=== PATIENT | male | born 1995 | race Caucasian/White ===

== ENCOUNTER 2021-01-24 14:09 | Emergency (ER) | payer OTHER ==
[2021-01-24] MEDS ORDERED: Sodium Chloride 0.9% 10 ML Syringe FLUSH PRN (14:40)
[2021-01-24] MEDS ORDERED: Sodium Chloride 0.9% 1,000 ML IV STA (14:40)
[2021-01-24] MEDS ORDERED: Ondansetron 4 MG/2 ML SDV IVPUSH ONE (14:40)
[2021-01-24] MEDS ORDERED: Pantoprazole 40 MG Vial IVPUSH ONE (14:41)
[2021-01-24] MEDS ORDERED: Alum Hydrox/Mag Hydrox/Simeth 30 ML, Lidocaine 2% 15 ML PO ONE ×2 (14:42)
--- NOTE | 2021-01-24 16:55 | EDM.PDOC ---
ED HPI GENERAL MEDICAL PROBLEM - General Chief Complaint: Abdominal Pain Stated Complaint: ABD PAIN Time Seen by Provider: 01/24/21 14:22 Source of Information: Reports: Patient History Limitations: Reports: No Limitations - History of Present Illness INITIAL COMMENTS - FREE TEXT/NARRATIVE: The patient presents with abdominal pain and chest pain. This has been going on for a few days. The pain is burning. He is an alcoholic and the other night he drank. He also vomited some blood the next day. He has no fever, chills or cough. He has no other medical problems. He has some diarrhea. There is no blood in his stool and no dark stool. Onset: Gradual Duration: Day(s): Location: Reports: Chest, Abdomen Quality: Reports: Burning Severity: Moderate Improves with: Reports: None Worsens with: Reports: None Associated Symptoms: Reports: Chest Pain, Nausea/Vomiting. Denies: Cough, Fever/Chills, Headaches Abdomen Pain Score (Numeric/FACES): 7 - Related Data Allergies Allergy/AdvReac Type Severity Reaction Status Date / Time No Known Allergies Allergy Verified 01/24/21 14:24 Home Meds: Home Meds . [No Known Home Meds] 01/24/21 [History] Past Medical History - Past Health History Medical/Surgical History: Denies Medical/Surgical History - Infectious Disease History Infectious Disease History: Reports: None Social & Family History - Tobacco Use Tobacco Use Status *Q: Current Every Day Tobacco User Years of Tobacco use: 3 Packs/Tins Daily: 0.4 - Caffeine Use Caffeine Use: Reports: Energy Drinks, Soda - Recreational Drug Use Recreational Drug Type: Reports: Marijuana/Hashish ED ROS GENERAL - Review of Systems Review Of Systems: See Below Constitutional: Reports: No Symptoms HEENT: Reports: No Symptoms Respiratory: Reports: No Symptoms Cardiovascular: Reports: Chest Pain GI/Abdominal: Reports: Abdominal Pain, Hematemesis, Nausea, Vomiting : Reports: No Symptoms Musculoskeletal: Reports: No Symptoms Skin: Reports: No Symptoms Neurological: Reports: No Symptoms ED EXAM, GI/ABD - Physical Exam Exam: See Below Exam Limited By: No Limitations General Appearance: Alert, No Apparent Distress Ears: Normal External Exam Nose: Normal Inspection Head: Atraumatic, Normocephalic Neck: Normal Inspection Respiratory/Chest: No Respiratory Distress, Lungs Clear, Normal Breath Sounds Cardiovascular: Regular Rate, Rhythm, No Edema, No Rub GI/Abdominal Exam: Soft, Non-Tender, No Organomegaly Back Exam: Normal Inspection Extremities: Normal Inspection Course - Vital Signs Last Recorded V/S: Last Vital Signs Temp 98.5 F 01/24/21 14:28 Pulse 74 01/24/21 14:28 Resp 20 01/24/21 14:28 BP 145/81 H 01/24/21 14:28 Pulse Ox 98 01/24/21 14:28 - Orders/Labs/Meds Orders: Active Orders 24 hr Category Date Time Status Peripheral IV Care [RC] . DIRECTED Care 01/24/21 14:41 Active Sodium Chloride 0.9% [Saline Flush] Med 01/24/21 14:40 Active 10 ml FLUSH ASDIRECTED PRN ED Antiemetic Medication Reflex [OM.PC] Stat Oth 01/24/21 14:41 Ordered Peripheral IV Insertion Adult [OM.PC] Stat Oth 01/24/21 14:40 Ordered Medication Orders Sodium Chloride (Sodium Chloride 0.9% 10 Ml Syringe) 10 ml FLUSH ASDIRECTED PRN PRN Reason: Keep Vein Open Last Admin: 01/24/21 15:59 Dose: 10 ml Documented by: KERI Labs: Laboratory Tests 01/24/21 01/24/21 Range/Units 15:52 15:52 WBC 6.13 (4.23-9.07) K/mm3 RBC 4.72 (4.63-6.08) M/mm3 Hgb 14.7 (13.7-17.5) gm/dl Hct 43.2 (40.1-51.0) % MCV 91.5 (79.0-92.2) fl MCH 31.1 (25.7-32.2) pg MCHC 34.0 (32.2-35.5) g/dl RDW Std Deviation 46.2 H (35.1-43.9) fL Plt Count 227 (163-337) K/mm3 MPV 9.9 (9.4-12.3) fl Neut % (Auto) 60.0 (34.0-67.9) % Lymph % (Auto) 26.8 (21.8-53.1) % Banks % (Auto) 11.7 (5.3-12.2) % Eos % (Auto) 0.7 L (0.8-7.0) Baso % (Auto) 0.5 (0.1-1.2) % Neut # (Auto) 3.68 (1.78-5.38) K/mm3 Lymph # (Auto) 1.64 (1.32-3.57) K/mm3 Banks # (Auto) 0.72 (0.30-0.82) K/mm3 Eos # (Auto) 0.04 (0.04-0.54) K/mm3 Baso # (Auto) 0.03 (0.01-0.08) K/mm3 Sodium 138 (136-145) mEq/L Potassium 3.8 (3.5-5.1) mEq/L Chloride 101 (98-107) mEq/L Carbon Dioxide 28 (21-32) mEq/L Anion Gap 12.8 (5-15) BUN 18 (7-18) mg/dL Creatinine 1.0 (0.7-1.3) mg/dL Est Cr Clr Drug Dosing 109.12 mL/min Estimated GFR (MDRD) > 60 (>60) mL/min BUN/Creatinine Ratio 18.0 (14-18) Glucose 97 (70-99) mg/dL Calcium 9.2 (8.5-10.1) mg/dL Total Bilirubin 0.6 (0.2-1.0) mg/dL AST 31 (15-37) U/L ALT 26 (16-63) U/L Alkaline Phosphatase 82 (46-116) U/L Total Protein 7.3 (6.4-8.2) g/dl Albumin 4.2 (3.4-5.0) g/dl Globulin 3.1 gm/dL Albumin/Globulin Ratio 1.4 (1-2) Lipase 88 (73-393) U/L Meds: Medications Generic Name Dose Route Start Last Admin Trade Name Freq PRN Reason Stop Dose Admin Sodium Chloride 10 ml 01/24/21 14:40 01/24/21 15:59 Sodium Chloride 0.9% 10 Ml Syringe FLUSH 10 ml ASDIRECTED PRN Administration Keep Vein Open Discontinued Medications Generic Name Dose Route Start Last Admin Trade Name Freq PRN Reason Stop Dose Admin Al Hydroxide/Mg Hydroxide 30 0 ml 01/24/21 14:42 01/24/21 16:00 ml/ Lidocaine HCl 15 ml PO 01/24/21 14:43 45 ml ONETIME ONE Administration Sodium Chloride 1,000 mls @ 1,000 mls/hr 01/24/21 14:40 01/24/21 16:00 Normal Saline IV 01/24/21 15:39 1,000 mls/hr .BOLUS STA Administration Ondansetron HCl 4 mg 01/24/21 14:40 01/24/21 15:59 Ondansetron 4 Mg/2 Ml Sdv IVPUSH 01/24/21 14:41 4 mg ONETIME ONE Administration Pantoprazole Sodium 40 mg 01/24/21 14:41 01/24/21 16:01 Pantoprazole 40 Mg Vial IVPUSH 01/24/21 14:42 40 mg ONETIME ONE Administration - Re-Assessments/Exams Free Text/Narrative Re-Assessment/Exam: 01/24/21 16:53 I ordered an IV NS 1L bolus, protonix 40mg IV, magic mouth wash 45mls PO and labs. His CBC and CMP look good. His lipase is normal. He feels better. I will have him take some pepcid daily for a week. Departure - Departure Time of Disposition: 17:00 Disposition: Home, Self-Care 01 Condition: Good Clinical Impression: Gastritis Qualifiers: Gastritis type: alcoholic Chronicity: acute Gastritis bleeding: with bleeding Qualified Code(s): K29.21 - Alcoholic gastritis with bleeding - Discharge Information *PRESCRIPTION DRUG MONITORING PROGRAM REVIEWED*: Not Applicable *COPY OF PRESCRIPTION DRUG MONITORING REPORT IN PATIENT JULIANO: Not Applicable Referrals: PCP,None [Primary Care Provider] - Andrés Meyers MD [Physician] - 1 Week Additional Instructions: Drink plenty of fluids. Avoid drinking alcohol. Take pepcid daily for a week. If you have more pain, try some maalox. That will help you sooth your stomach. Please return if you are worse. Sepsis Event Note (ED) - Focused Exam Vital Signs: Vital Signs Temp Pulse Resp BP Pulse Ox 01/24/21 14:28 98.5 F 74 20 145/81 H 98 - My Orders Last 24 Hours: My Active Orders 01/24/21 14:40 Sodium Chloride 0.9% [Saline Flush] 10 ml FLUSH ASDIRECTED PRN Peripheral IV Insertion Adult [OM.PC] Stat 01/24/21 14:41 Peripheral IV Care [RC] . DIRECTED ED Antiemetic Medication Reflex [OM.PC] Stat - Assessment/Plan Last 24 Hours: My Active Orders 01/24/21 14:40 Sodium Chloride 0.9% [Saline Flush] 10 ml FLUSH ASDIRECTED PRN Peripheral IV Insertion Adult [OM.PC] Stat 01/24/21 14:41 Peripheral IV Care [RC] . DIRECTED ED Antiemetic Medication Reflex [OM.PC] Stat
== END 2021-01-24 17:36 | disposition home or self-care (01) ==
LOC: JD.ED 14:09
DX: K29.21 Alcoholic gastritis with bleeding (principal); Z72.0 Tobacco use
CPT/HCPCS: 36415; 80053; 83690; 85025; 96374; 96375; 99284; A9270; C9113; J2405; J7030

== ENCOUNTER 2021-08-18 00:59 | Inpatient (IN) | payer OTHER ==
[2021-08-18] MEDS ORDERED: Sodium Chloride 0.9% 1,000 ML IV ONE ×2 (01:40→04:00)
[2021-08-18] MEDS ORDERED: LORazepam 2 MG/ML SDV IVPUSH STA ×2 (01:40→13:29)
[2021-08-18 02:14] LABS: ESTIMATED GFR 40 mL/min (>60)
[2021-08-18 02:15] LABS: ACETAMINOPHEN 0 ug/mL (10-30)
[2021-08-18] MEDS ORDERED: Potassium Chloride 20 MEQ Tab.ER PO ONE (02:47)
[2021-08-18] MEDS ORDERED: Acetaminophen 325 MG Tab PO PRN (05:31)
[2021-08-18] MEDS ORDERED: Ondansetron 4 MG/2 ML SDV IV PRN (05:31)
[2021-08-18] MEDS ORDERED: NS + KCl 20mEq/L 1,000 ML IV SCH (05:45)
[2021-08-18 06:12] LABS: ESTIMATED GFR 87 mL/min (>60)
[2021-08-18] MEDS ORDERED: LORazepam 2 MG/ML SDV IVPUSH ONE ×3 (08:00→11:11)
[2021-08-18] MEDS: LORazepam 2 MG/ML SDV IV SCH ×4 (08:03→12:06)
[2021-08-18] MEDS ORDERED: Nicotine 14 MG/24 Hr Patch TRDERM SCH (09:00)
[2021-08-18] MEDS ORDERED: PHENobarbital Sodium 65 MG/ML SDV IVPUSH ONE (09:30)
[2021-08-18] MEDS ORDERED: LORazepam 2 MG/ML SDV IVPUSH PRN (12:13)
[2021-08-18] MEDS ORDERED: Haloperidol Lactate 5 MG/ML SDV IVPUSH ONE (12:28)
[2021-08-18] MEDS ORDERED: Haloperidol Lactate 5 MG/ML SDV IVPUSH STA (13:10)
[2021-08-18] MEDS ORDERED: Haloperidol Lactate 5 MG/ML SDV IM STA (13:13)
[2021-08-18] MEDS ORDERED: LORazepam 2 MG/ML SDV ONE (13:28)
[2021-08-18] MEDS ORDERED: Succinylcholine 200 MG/10 ML MDV IV ONE (13:45)
[2021-08-18] MEDS ORDERED: Acetaminophen 650 MG Supp RECTAL PRN (13:58)
[2021-08-18] MEDS ORDERED: Propofol 200 MG/20 ML SDV ONE (14:00)
[2021-08-18] MEDS ORDERED: Propofol 200 MG/20 ML SDV IVPUSH ONE (14:00)
[2021-08-18] MEDS ORDERED: Succinylcholine 200 MG/10 ML MDV ONE (14:00)
[2021-08-18] MEDS ORDERED: propofoL 100 ML IV SCH (14:15)
[2021-08-18] MEDS ORDERED: Norepinephrine 4 MG in Dextrose 5% in Water 246 ML IV SCH ×2 (14:15)
[2021-08-19] MEDS ORDERED: Pantoprazole 40 MG Vial IVPUSH SCH (15:00)
== END 2021-08-18 15:00 | DRG 897 ==
LOC: JD.ED 00:59 → JD.MS 05:09 → JD.ICU 11:13
PROVIDERS: ADMIT Internal Medicine; ATTEND Internal Medicine
PROC: 0BH18EZ Insertion of Endotracheal Airway into Trachea, Via Natural or Artificial Opening Endoscopic (ICD-10-PCS; principal; 2021-08-18)
PROC: 5A1935Z Respiratory Ventilation, Less than 24 Consecutive Hours (ICD-10-PCS; 2021-08-18)
DX: F10.231 Alcohol dependence with withdrawal delirium (principal); E87.2 Acidosis; E87.6 Hypokalemia; F10.251 Alcohol dependence with alcohol-induced psychotic disorder with hallucinations; Z20.822 Contact with and (suspected) exposure to COVID-19; F12.90 Cannabis use, unspecified, uncomplicated; E86.9 Volume depletion, unspecified; F41.9 Anxiety disorder, unspecified; F32.A Depression, unspecified; G43.909 Migraine, unspecified, not intractable, without status migrainosus; Z72.89 Other problems related to lifestyle
CPT/HCPCS: 31500; 36415; 36600; 51702; 71045; 71045-26; 80048; 80053; 80143; 80179; 80306; 80307; 82803; 83605; 83735; 84443; 85007; 85027; 85379; 86140; 93005; 94002; A9270-GY; J0330; J1630; J2060; J2560; J2704; J3411; J7030; J7060; U0002